=== PATIENT | female | born 1970 | race Hispanic/Latino ===

== ENCOUNTER 2019-02-11 15:03 | Inpatient (IN) | payer SELFPAY ==
[~2019-02-11] VITALS: Ht 154.9 cm; Wt 72.2 kg
[2019-02-11] MEDS ORDERED: KETOROLAC TROMETHAMINE 30MG/ML ONE (15:31)
[2019-02-11] MEDS ORDERED: ONDANSETRON HCL 4 MG/2 ML VIAL ONE (15:31)
[2019-02-11 15:41] LABS: APPEARANCE,URINE SL CLOUDY (CLEAR); BASOPHILS % (AUTO) 0.8 % (0.0-5.0); BILIRUBIN,URINE NEGATIVE (NEGATIVE); COLOR,URINE YELLOW (YELLOW); EOSINOPHILS % (AUTO) 0.1 % (0.0-8.0); GLUCOSE, URINE (UA) NEGATIVE (NEGATIVE); HEMATOCRIT 40.5 % (36-48); KETONES,URINE NEGATIVE (NEGATIVE); LEUKOCYTE ESTERASE ,URINE MODERATE (NEGATIVE); LYMPHOCYTES % (AUTO) 16.2 % (21.0-51.0); MEAN CORPUSCULAR HEMOGLOBIN 32.3 pg (27.0-33.0); MEAN CORPUSCULAR VOLUME 94.9 fL (79-99); MONOCYTES % (AUTO) 9.7 % (3.0-13.0); NEUTROPHILS % (AUTO) 73.2 % (40.0-77.0); NITRATE,URINE POSITIVE (NEGATIVE); OCCULT BLOOD,URINE LARGE (NEGATIVE); PH,URINE 6.5 (5.0-8.0); PLATELET COUNT (AUTO) 219 K/uL (130-400); PROTEIN,URINE TRACE mg/dL (NEGATIVE); RED BLOOD CELL COUNT(AUTO) 4.27 MIL/uL (4.00-5.50); RED CELL DISTRIBUTION WIDTH 12.7 % (11.0-15.5); UROBILINOGEN,URINE >=8.0 mg/dL (0.2-1.0)
[2019-02-11 15:51] LABS: CREATININE 0.7 mg/dL (0.5-1.5)
[2019-02-11 16:39] LABS: BACTERIA,URINE Many /HPF (None Seen)
[2019-02-11] MEDS ORDERED: CEFTRIAXONE SODIUM 1 GM ONE (17:06)
[2019-02-11] MEDS: SODIUM CHLORIDE 0.9% 1000ML 1,000 ML IV SCH (17:43)
[2019-02-11] MEDS ORDERED: ACETAMINOPHEN 325 MG TAB PO PRN (17:45)
[2019-02-11] MEDS ORDERED: ONDANSETRON HCL 4 MG/2 ML VIAL IV PRN (17:45)
[2019-02-11] MEDS ORDERED: POTASSIUM CHLORIDE 20 MEQ ERTAB PO ONE (18:51)
[2019-02-11 18:55] LABS: HEMOGLOBIN A1C 8.9 % (4.0-6.0)
[2019-02-11] MEDS ORDERED: IOHEXOL-350 75 ML VIAL IV ONE (20:00)
[2019-02-11] MEDS ORDERED: ZOSYN 3.375GM+NS 50ML 50 ML IV ONE (20:41)
[2019-02-11] MEDS ORDERED: FAMOTIDINE 20MG TAB 20 MG TAB ONE (20:41)
[2019-02-11] MEDS ORDERED: ACETAMINOPHEN 325 MG TAB ONE (20:42)
[2019-02-11] MEDS ORDERED: LIDOCAINE HCL-MPF 1% 2ML VIAL IVP PRN (21:00)
[2019-02-11] MEDS ORDERED: POTASSIUM CHLORIDE 20MEQ/100ML 100 ML IV PRN (21:00)
[2019-02-11] MEDS: ZOSYN 3.375GM+NS 50ML 50 ML IV SCH (21:00)
[2019-02-11] MEDS ORDERED: POTASSIUM CHLORIDE 10% ELIXIR 20 MEQ/15 ML UDCUP PO PRN (21:00)
[2019-02-11] MEDS ORDERED: FAMOTIDINE 20MG TAB 20 MG TAB PO SCH (21:00)
[2019-02-11] MEDS: FAMOTIDINE/PF 20 MG/2 ML VIAL IV SCH (21:00)
[2019-02-11 21:15] VITALS: BP 112/59
[2019-02-11] MEDS ORDERED: MORPHINE SULFATE 2 MG/ML 1ML SYG IVP PRN (22:45)
[2019-02-11] MEDS ORDERED: MORPHINE SULFATE 4 MG/1ML SYG IM PRN (22:45)
[2019-02-11] MEDS ORDERED: MORPHINE SULFATE 4 MG/1ML SYG IV PRN (23:00)
[2019-02-11] MEDS ORDERED: MORPHINE SULFATE 4 MG/1ML SYG ONE (23:02)
[2019-02-11] MEDS: INSULIN HUMULIN R 100 UNIT/ML 3ML SQ SCH (23:08)
[2019-02-11] MEDS: POTASSIUM CHLORIDE 20 MEQ ERTAB PO PRN (23:11)
[2019-02-11 23:59] VITALS: BP 90/55
[2019-02-12 04:00] VITALS: BP 107/60
--- NOTE | 2019-02-12 04:49 | NUR ---
ASSESS PT'S ASSESSMENT DONE, PLEASE REFER TO CHART. PT CLAIMS OF HEADACHE AND RT FLANK PAINS. KEPT RESTED. RE-POSITIONED COMFORTABLY IN BED. PRIMARY NURSE REPORTED PT'S PAINS FOR MEDICATION. FOR MORE CARE AND MANAGEMENT. Addendum: 02/12/19 at 0503 by RAGHU RUIZ RN RN Amended: Links added.
[2019-02-12] MEDS: SODIUM CHLORIDE 0.9% 1000ML 1,000 ML IV SCH ×3 (05:19→17:59)
[2019-02-12] MEDS: ZOSYN 3.375GM+NS 50ML 50 ML IV SCH ×3 (05:19→21:02)
[2019-02-12] MEDS: ACETAMINOPHEN 325 MG TAB PO PRN ×3 (05:20→22:57)
[2019-02-12] MEDS: INSULIN HUMULIN R 100 UNIT/ML 3ML SQ SCH ×4 (06:19→21:00)
[2019-02-12 06:20] LABS: MAGNESIUM 1.7 mg/dL (1.80-2.40)
[2019-02-12 07:00] VITALS: BP 106/63
--- NOTE | 2019-02-12 08:00 | NUR ---
AM SHIFT ASSESSMENT.
[2019-02-12] MEDS: GLIPIZIDE 5 MG TABLET PO SCH ×2 (09:47→16:44)
[2019-02-12] MEDS: FAMOTIDINE/PF 20 MG/2 ML VIAL IV SCH ×2 (09:49→21:02)
[2019-02-12] MEDS: ENOXAPARIN SODIUM 40 MG/0.4 ML SYRINGE SQ SCH (09:49)
[2019-02-12] MEDS: METFORMIN HCL 850 MG TABLET PO SCH ×2 (09:50→16:44)
[2019-02-12 11:00] VITALS: BP 136/76
--- NOTE | 2019-02-12 11:50 | NUR ---
DCP CM met with pt discussed dc plans. Pt is independent, lives at home with spouse. Denies any other equipments/services. Pt feels safe to go back home. Pt is a self pay, currently does not see a pcp, given local MD lists, given community resources lists, [facility] assisting. DC plan to home once stable. CM to cont to follow up. Addendum: 02/12/19 at 1151 by SONAL REYEZ LVN CM Amended: Links added.
[2019-02-12 16:00] VITALS: BP 123/82
[2019-02-12] MEDS ORDERED: MAGNESIUM 2GM PREMIX 50ML 50 ML IV ONE (17:30)
--- NOTE | 2019-02-12 18:00 | NUR ---
RESTED WELL, LOW GRADE TEMP EARLIER AND HAD RECEIVED TYLENOL FOR A MORILLO. HAS HAD NO C/O WITH VOIDING, DENIES PAIN OR BURNING UPON URINATION.
[2019-02-12 20:00] VITALS: BP 131/75
[2019-02-13] VITALS (7 sets, daily range): BP systolic 107–148; BP diastolic 54–80
[2019-02-13] MEDS: ZOSYN 3.375GM+NS 50ML 50 ML IV SCH ×3 (05:28→21:18)
[2019-02-13 05:33] LABS: HEMATOCRIT 32.2 % (36-48); MEAN CORPUSCULAR HEMOGLOBIN 32.6 pg (27.0-33.0); MEAN CORPUSCULAR HGB CONC 34.2 g/dL (32.0-36.0); MEAN CORPUSCULAR VOLUME 95.4 fL (79-99); PLATELET COUNT (AUTO) 191 K/uL (130-400); RED BLOOD CELL COUNT(AUTO) 3.37 MIL/uL (4.00-5.50); RED CELL DISTRIBUTION WIDTH 12.9 % (11.0-15.5); WHITE BLOOD COUNT (AUTO) 9.3 K/uL (4.8-10.8)
[2019-02-13 05:45] LABS: CREATININE 0.6 mg/dL (0.5-1.5); PHOSPHORUS 3.4 mg/dL (2.5-4.9); POTASSIUM 3.2 mmol/L (3.5-5.1)
[2019-02-13] MEDS: GLIPIZIDE 5 MG TABLET PO SCH ×2 (06:53→16:33)
[2019-02-13] MEDS: INSULIN HUMULIN R 100 UNIT/ML 3ML SQ SCH ×4 (06:55→19:49)
[2019-02-13] MEDS: POTASSIUM CHLORIDE 20 MEQ ERTAB PO PRN ×2 (06:55→16:35)
[2019-02-13] MEDS: ACETAMINOPHEN 325 MG TAB PO PRN ×2 (07:00→16:32)
[2019-02-13] MEDS: METFORMIN HCL 850 MG TABLET PO SCH ×2 (08:48→16:32)
[2019-02-13] MEDS: FAMOTIDINE/PF 20 MG/2 ML VIAL IV SCH ×2 (08:48→21:18)
[2019-02-13] MEDS: ENOXAPARIN SODIUM 40 MG/0.4 ML SYRINGE SQ SCH (08:49)
[2019-02-13] MEDS: SODIUM CHLORIDE 0.9% 1000ML 1,000 ML IV SCH (11:28)
[2019-02-13] MEDS ORDERED: POTASSIUM CHLORIDE 20MEQ/100ML 100 ML IV PRN (17:30)
[2019-02-13] MEDS ORDERED: LIDOCAINE HCL-MPF 1% 2ML VIAL IVP PRN (17:30)
[2019-02-13] MEDS ORDERED: POTASSIUM CHLORIDE 10% ELIXIR 20 MEQ/15 ML UDCUP PO PRN (17:30)
[2019-02-14] MEDS: SODIUM CHLORIDE 0.9% 1000ML 1,000 ML IV SCH (01:16)
[2019-02-14 03:00] VITALS: BP 133/70
[2019-02-14] MEDS: ZOSYN 3.375GM+NS 50ML 50 ML IV SCH (05:30)
[2019-02-14] MEDS: INSULIN HUMULIN R 100 UNIT/ML 3ML SQ SCH ×2 (05:30→11:30)
[2019-02-14 06:02] LABS: HEMATOCRIT 32.1 % (36-48); MEAN CORPUSCULAR HEMOGLOBIN 33.5 pg (27.0-33.0); MEAN CORPUSCULAR VOLUME 95.9 fL (79-99); PLATELET COUNT (AUTO) 233 K/uL (130-400); RED BLOOD CELL COUNT(AUTO) 3.35 MIL/uL (4.00-5.50); RED CELL DISTRIBUTION WIDTH 13.2 % (11.0-15.5); WHITE BLOOD COUNT (AUTO) 8.9 K/uL (4.8-10.8)
[2019-02-14 06:13] LABS: CREATININE 0.6 mg/dL (0.5-1.5); POTASSIUM 3.7 mmol/L (3.5-5.1)
[2019-02-14 06:24] VITALS: BP 153/78
[2019-02-14] MEDS: GLIPIZIDE 5 MG TABLET PO SCH (06:28)
[2019-02-14 07:35] VITALS: BP 153/78
[2019-02-14] MEDS: METFORMIN HCL 850 MG TABLET PO SCH (08:49)
[2019-02-14] MEDS: FAMOTIDINE/PF 20 MG/2 ML VIAL IV SCH (08:49)
[2019-02-14] MEDS: ENOXAPARIN SODIUM 40 MG/0.4 ML SYRINGE SQ SCH (08:51)
[2019-02-14] MEDS ORDERED: LEVOFLOXACIN 500 MG TABLET PO SCH (09:00)
[2019-02-14] MEDS ORDERED: METF850T PO (10:44)
[2019-02-14] MEDS ORDERED: GLIP5TAB11 PO (10:44)
[2019-02-14] MEDS ORDERED: LEVO500T2 PO (10:44)
[2019-02-14 11:23] VITALS: BP 132/68
--- NOTE | 2019-02-14 14:33 | NUR ---
DISCHARGE INSTRUCTIONS GIVEN TO PATIENT AND VERBALIZED UNDERSTANDING , TELEMETRY UNIT NOTIFIED AND UNIT REMOVED , IV DISCONTINUED WITH CATHETER INTACT AND SITE DRESSED. LIST OF FAMILY PRACTICE PHYSICIAN GIVEN FOR PATIENT TO PICK A PHYSICIAN FROM TO FOLLOW-UP IN 1-3 DAYS , NO QUESTIONS OR CONCERNS AT THIS TIME . PATIENT DRESSING AND WILL CALL WHEN READY TO TRANSPORT VIA WHEELCHAIR TO [facility]
== END 2019-02-14 14:50 | disposition home or self-care (01) | DRG 872 ==
LOC: EDH 15:03 → EDHIP 15:04 → 3CH 21:26
PROVIDERS: ADMIT Internal Medicine; ATTEND Internal Medicine
DX: A41.9 Sepsis, unspecified organism (principal); N12 Tubulo-interstitial nephritis, not specified as acute or chronic; E87.1 Hypo-osmolality and hyponatremia; E87.6 Hypokalemia; E83.42 Hypomagnesemia; F17.210 Nicotine dependence, cigarettes, uncomplicated; E11.9 Type 2 diabetes mellitus without complications; B96.20 Unspecified Escherichia coli [E. coli] as the cause of diseases classified elsewhere; Z90.710 Acquired absence of both cervix and uterus; Z79.84 Long term (current) use of oral hypoglycemic drugs
CPT/HCPCS: 36415; 74178; 80048; 81001; 82948; 83036; 83605; 83735; 84100; 84132; 85025; 85027; 87040; 87077; 87088; 87186; 99291; G0378; J0696; J1650; J1815; J1885; J2270; J2405; J2543; J3475; J3480; J3490; Q9967

== ENCOUNTER 2024-09-23 20:06 | Emergency (ER) | payer SELFPAY ==
[~2024-09-23] VITALS: Ht 154.9 cm; Wt 63.0 kg
[~2024-09-23 20:06] MED LIST: GLIP5TAB15 PO; LEVO500T2 PO; METF850T PO
--- NOTE | 2024-09-23 20:20 | ERN ---
ED Note History of Present Illness Stated Complaint: C/O PAIN TO LEFT FOOT WITH NUMBNESS Chief Complaint: FOOT INJURY/PAIN Time Seen by MD: 20:15 Dictation: PATIENT IS 54-YEAR-OLD FEMALE WITH NON TRAUMA LEFT FOOT PAIN TO THE DORSUM WORSE WITH WEIGHT-BEARING FOR ONE MONTH. SHE DENIES FEVER CHILLS NAUSEA VOMITING NO HISTORY OF TRAUMA . HAS NOT BEEN TO SEE HER PRIMARY CARE DOCTOR. SKIN IS INTACT Allergies: Coded Allergies: No Known Drug Allergies (Verified Allergy, Unknown, 02/11/19) Home Meds Active Scripts Metformin HCl (Glucophage) 850 Mg Tablet, 850 MG PO BIDMEALS for 30 Days, TAB Prov:ELIAZAR PALACIO [employer] WORK[employer] 02/14/19 Levofloxacin (Levaquin) 500 Mg Tablet, 500 MG PO DAILY for 7 Days, TAB Prov:ELIAZAR PALACIO [employer] WORKER 02/14/19 Glipizide (Glipizide) 5 Mg Tablet, 2.5 MG PO BIDAC for 15 Days, TAB Prov:ELIAZAR PALACIO [employer] WORKER 02/14/19 Past Medical History Past Medical History: Diabetes-Type II Surgical History: Hysterectomy History: Not Applicable RN Note Reviewed/Agreed w/PFSH: Yes Review of System Dictation CONSTITUTIONAL: NEGATIVE EXCEPT FOR HPI HEAD/FACE: NEGATIVE EXCEPT FOR HPI EENT: NEGATIVE EXCEPT FOR HPI RESPIRATORY: NEGATIVE EXCEPT FOR HPI GASTROINTESTINAL/ABDOMINAL: NEGATIVE EXCEPT FOR HPI GENITOURINARY: NEGATIVE EXCEPT FOR HPI MUSCULOSKELETAL: NEGATIVE EXCEPT FOR HPI LEFT DORSAL FOOT PAIN INTEGUMENTARY: NEGATIVE EXCEPT FOR HPI NEUROLOGICAL/PSYCH: NEGATIVE EXCEPT FOR HPI HEMATOLOGIC/LYMPHATIC: NEGATIVE EXCEPT FOR HPI ALL SYSTEMS NEGATIVE, EXCEPT NOTED ABOVE. 13 POINT REVIEW OF SYSTEMS ASSESSED AND ALL NEGATIVE EXCEPT FOR ABOVE. Initial Vital Sign VS Vital Signs Date Time Temp Pulse Resp B/P (MAP) Pulse Ox O2 Delivery O2 Flow Rate FiO2 09/23/24 20:09 97.0 87 20 148/86 98 Room Air Physical Exam Dictation VITAL SIGNS REVIEWED GENERAL APPEARANCE: ALERT, ORIENTED X 3, MILD ACUTE DISTRESS, WELL DEVELOPED, NOURISHED. HEAD AND FACE: NON-TRAUMATIC. EYES: PERRL, PINK CONJUNCTIVAS, EYELID NO TRAUMA, ANTERIOR CHAMBER WITH ARCUS SENILIS. EARS: PINNAS INTACT AND NO SIGNS OF TRAUMA OR ERYTHEMA EAR CANALS CLEAR AND NO DISCHARGE TM NO ERYTHEMA NOSE: NO DISCHARGE, NO BLEEDING. OROPHARYNX: MOUTH NORMAL, TONGUE PINK, PHARYNX CLEAR,NO ERYTHEMA, TONSILS NO EXUDATES, NO ABSCESSES NOTED, MUCOUS MEMBRANE MOIST NECK: SUPPLE, NON-TENDER, NO THYROMEGALY, NO MASSES, NO JVD, NO BRUITS BREAST:DEFERRED CHEST:NO TENDERNESS, NO CREPITUS, NO PARADOXICAL MOVEMENT, NO RETRACTIONS LUNGS:CLEAR, WELL-VENTILATED, SYMMETRIC, NO RALES, NO WHEEZING, NO RHONCHI, NO STRIDOR, GOOD BREATH SOUNDS BILATERALLY HEART: REGULAR RATE, REGULAR RHYTHM, NO MURMUR, NO GALLOPS VASCULAR: NO PERIPHERAL EDEMA, ABDOMEN: SOFT, POSITIVE BOWEL SOUNDS, NONDISTENDED, NO GUARDING, NONTENDER, NO REBOUND, NO MASSES NO HEPATOMEGALY, NO SPLENOMEGALY, NO GALLEGOS'S S IGN, NO HERNIAS. RECTAL: DEFERRED GENITAL: DEFERRED NEUROLOGICAL: NORMAL SPEECH, MOTOR FUNCTION INTACT, SENSORY FUNCTION INTACT MUSCULOSKELETAL: NECK NONTENDER, FULL RANGE OF MOTION, BACK NONTENDER, FULL RANGE OF MOTION, EXTREMITIES: DORSUM LEFT FOOT TENDERNESS WITH PALPATION SKIN IS INTACT NO ERYTHEMA NO SWELLING. NEUROVASCULAR CMS INTACT SKIN: COLOR PINK, DRY, NO TURGOR, NO RASH, NO LACERATIONS, NO ABRASIONS, NO CONTUSIONS. LYMPHATIC: DEFERRED Results (Laboratory/Radiology) Laboratory/Radiology 2139 left foot x-ray negative Labs Reviewed?: Yes ED Course ED Course Orders Procedure Category Date Status Time Hydrocodone/Apap PHA 09/23/24 Complete 5/325 ([place] 5/325mg) 20:30 Foot Comp 3+Vws Lt RAD 09/23/24 Taken 20:17 Current Medications Medications (Trade) Dose Ordered Sig/Beni Route PRN Reason Start Time Stop Time Status Last Admin Dose Admin Acetaminophen/ Hydrocodone Bitart (NORco 5/325MG) 1 tab ONCE ONCE PO 09/23/24 20:30 09/23/24 20:31 DC 09/23/24 21:00 Vital Signs Date Time Temp Pulse Resp B/P (MAP) Pulse Ox O2 Delivery O2 Flow Rate FiO2 09/23/24 20:09 97.0 87 20 148/86 98 Room Air 2140 patient diagnosed with diabetic neuropathy we will be sent home with gabapentin and told to follow up with the primary care doctor. Medical Decision Making MDM Medical decision-making based on x-ray of left foot and pain management. Left foot x-ray negative Discharged home with diabetic neuropathy and gabapentin Told to see your primary care doctor DX & DISP Disposition: Discharge Departure Impression: Primary Impression: Diabetic neuropathy, type II diabetes mellitus Condition: Stable Scripts Gabapentin (Gabapentin) 800 Mg Tablet 1 TAB PO TID for 10 Days, #30 TAB 0 Refills Prov: JAYLIN ROSALES [employer] WORK[employer] 09/23/24 Additional Instructions: Follow-up with primary care provider in 1 to 2 days. Take medications as directed here in the emergency room. Okay to continue home medications unless otherwise discussed during your visit in the emergency room today. Return to your nearest emergency room if symptoms worsen or if there is no improvement. Call 911 if you need immediate assistance. Take Tylenol or Motrin [id number] as needed and if no contraindications are present. Increase oral hydration. A wound culture or urine culture was ordered here in the emergency room department please follow-up with primary care provider and advise them to get repeat ports from our facility. If you had any [place] wrap/splints that were applied here, please do not remove them until you see your primary care or specialty. Take gabapentin as directed. Follow up with your primary care doctor in one two days for management Referrals: SELF,REFERRAL (PCP) Time of Disposition: 21:42 I have reviewed the case, and I agree with, Diagnosis and Plan JAYLIN ROSALES NP Sep 23, 2024 20:20
[2024-09-23] MEDS: HYDROcodone/APAP 5/325 1 TAB TABLET PO ONE (21:00)
[2024-09-23] MEDS ORDERED: GABA-1555 PO (21:44)
--- NOTE | 2024-09-23 22:22 | HMCIMG ---
FOOT COMP 3+VWS LT HISTORY: Pain COMPARISON: None TECHNIQUE: 3 images of left foot were obtained. FINDINGS: There is a tiny calcaneal spur. There is no acute displaced fracture or dislocation. Degenerative changes are seen. IMPRESSION: 1. Findings as described above.
[2024-09-23 22:24] VITALS: BP 143/79; PULSE 74; RESP 18; TEMP 97.9; O2SAT 98
== END 2024-09-23 22:25 | disposition home or self-care (01) ==
LOC: EDH 20:06
DX: E11.40 Type 2 diabetes mellitus with diabetic neuropathy, unspecified (principal); Z90.710 Acquired absence of both cervix and uterus
CPT/HCPCS: 73630; 99283